=== PATIENT | male | born 1975 | race African-American/Black ===

== ENCOUNTER 2016-09-26 09:04 | Emergency (ER) | payer OTHER | END 2016-09-26 10:28 | disposition home or self-care (01) | LOC: D.ER 09:04 | DX: M54.12 Radiculopathy, cervical region (principal); F17.200 Nicotine dependence, unspecified, uncomplicated ==

== ENCOUNTER 2017-05-18 01:09 | Emergency (ER) | payer OTHER | END 2017-05-18 01:58 | disposition home or self-care (01) | LOC: D.ER 01:09 | DX: S01.312A Laceration without foreign body of left ear, initial encounter (principal); Y04.2XXA Assault by strike against or bumped into by another person, initial encounter; Y93.89 Activity, other specified; Y92.029 Unspecified place in mobile home as the place of occurrence of the external cause; F17.200 Nicotine dependence, unspecified, uncomplicated ==

== ENCOUNTER 2017-10-01 16:54 | Emergency (ER) | payer OTHER ==
[2017-10-01 18:37] LABS: BASOPHILS 0.4 % (0-2); EOSINOPHILS 1.5 % (0-7); HEMATOCRIT 41.1 % (42.0-54.0); IMMATURE GRANULOCYTES 0.3 % (0-5); LYMPHOCYTES 31.2 % (15-50); MCH 31.5 pg (26.0-34.0); MCHC 34.1 g/dL (31.0-37.0); MCV 92.6 fL (80.0-100.0); MEAN PLATELET VOLUME 10.2 fL (7.4-10.4); MONOCYTES 10.4 % (2-11); NEUTROPHILS 56.2 % (40-80); PLATELET COUNT 212 10x3/uL (130-400); RBC 4.44 10x6/uL (4.20-6.10); RDW 13.1 % (11.5-14.5); WBC 7.2 10x3/uL (4.8-10.8)
[2018-01-02 15:02] VITALS: BMI 24.4
== END 2017-10-01 21:26 | disposition home or self-care (01) ==
LOC: D.ER 16:54
PROVIDERS: Emergency Medicine
DX: R04.0 Epistaxis (principal); M25.511 Pain in right shoulder

== ENCOUNTER → 2017-11-03 09:53 | Outpatient (CLI) | payer MEDICAID ==
[~2017-11-03 09:53] MED LIST: BACTRIM DS TABL1 TAB PO; DOXYCYCLINE HY100 M2 PO; HYDROCODONE-APA1 TAB PO
[2018-01-02 15:02] VITALS: BMI 24.4
== END | disposition home or self-care (01) ==
LOC: D.MRI 11-02 10:00
DX: M25.511 Pain in right shoulder (principal)

== ENCOUNTER 2017-11-07 03:10 | Observation (INO) | payer MEDICAID ==
[~2017-11-07] VITALS: Ht 175.3 cm; Wt 75.0 kg
--- NOTE | ~2017-11-07 | OP ---
PATIENT NAME: PETTY SINCLAIR MEDICAL RECORD: [id number] :73 LOCATION:[facility] ADMISSION DATE:11/07/17 SURGEON: ROCKY BARR MD DATE OF OPERATION: 11/08/2017 PREOPERATIVE DIAGNOSIS: Fracture of the left fifth proximal phalanx. POSTOPERATIVE DIAGNOSIS: Fracture of the left fifth proximal phalanx. PROCEDURE: Closed reduction percutaneous pinning of left fifth proximal phalanx. SURGEON: Rocky Barr MD ANESTHESIA: General. INTRAOPERATIVE COMPLICATIONS: None. SUMMARY OF PATHOLOGIC FINDINGS: A very small piece was reportedly reduced. I had to do a transmetacarpal to phalanx pinning in a flexed position to hold it in the appropriate position. OPERATIVE SUMMARY IN DETAIL: After obtaining the appropriate preoperative orthopedic surgery consent as well as anesthetic consultation, evaluation and clearance, the patient was brought to the operating room and placed on the operating table in supine position. After general laryngeal mask airway was administered, tourniquet was placed about the proximal aspect of the left upper extremity, which was not used in the case. Left upper extremity was prepped and draped in routine sterile fashion. The reduction maneuver was performed under fluoroscopic guidance on first attempt and pinning retrograde was not possible. At this point, the MCP joint was held in the flexed position and under fluoroscopy showed an excellent reduction. Cross pinning was then performed transmetacarpal head into the base of the proximal phalanx, which held it in a nice position. K-wires were covered with Jurgan balls. Sterile dressings were applied. The patient was awakened and taken to the recovery room in stable condition. All final needle and sponge counts were correct. TRANSINT:[id number] Voice Confirmation ID: [id number] DOCUMENT ID: [id number] ROCKY BARR MD at 1347 CC: [id number] DICTATION DATE: 11/08/17 0928 CLUB ROOM ATTENDANT: 11/08/17 1241 [place] [address]
[2017-11-07 04:36] LABS: BASOPHILS 0.7 % (0-2); EOSINOPHILS 0.9 % (0-7); HEMATOCRIT 41.2 % (42.0-54.0); HEMOGLOBIN 14.1 g/dL (13.5-17.5); IMMATURE GRANULOCYTES 0.4 % (0-5); LYMPHOCYTES 32.9 % (15-50); MCH 31.6 pg (26.0-34.0); MCHC 34.2 g/dL (31.0-37.0); MCV 92.4 fL (80.0-100.0); MEAN PLATELET VOLUME 10.1 fL (7.4-10.4); MONOCYTES 7.2 % (2-11); NEUTROPHILS 57.9 % (40-80); PLATELET COUNT 197 10x3/uL (130-400); RBC 4.46 10x6/uL (4.20-6.10); RDW 13.2 % (11.5-14.5); WBC 5.6 10x3/uL (4.8-10.8)
[2017-11-07 04:46] LABS: INR 1.07 (0.85-1.17); PROTIME 13.5 SECONDS (11.6-15.0)
[2017-11-07 04:54] LABS: ALBUMIN 4.1 g/dL (3.4-5.0); ALKALINE PHOSPHATASE 72 U/L (46-116); ALT (SGPT) 162 U/L (10-68); BILIRUBIN - TOTAL 0.52 mg/dL (0.2-1.3); CALC OSMOLALITY 277 mosm/kg (275-300); CALCIUM 8.9 mg/dL (8.5-10.1); CARBON DIOXIDE 23.2 mmol/L (21.0-32.0); CHLORIDE - SERUM 101 mmol/L (98-107); GLUCOSE 103 mg/dL (74-106); PROTEIN - SERUM 9.3 g/dL (6.4-8.2); SODIUM 140 mmol/L (136-145); UREA NITROGEN 11 mg/dL (7-18); eGFR NON AFRICAN AMERICAN 87 mL/min (90-120)
[2017-11-07] MEDS ORDERED: HYDROCODONE-APA1 TAB PO (05:10)
[2017-11-07 05:13] VITALS: BP 104/67; Ht 175.3 cm; Wt 75.0 kg
[2017-11-07 08:19] VITALS: BP 109/74
[2017-11-07 12:19] VITALS: BP 117/67
[2017-11-07 15:44] VITALS: BP 122/78
[2017-11-07 20:21] VITALS: BP 142/96
[2017-11-07 23:58] LABS: COLOR YELLOW (YELLOW)
[2017-11-07 23:59] LABS: APPEARANCE CLEAR (CLEAR); BILIRUBIN NEGATIVE (NEGATIVE); GLUCOSE NEGATIVE (NEGATIVE); KETONE NEGATIVE (NEGATIVE); NITRITE NEGATIVE (NEGATIVE); PROTEIN NEGATIVE (NEGATIVE); UROBILINOGEN NORMAL (NORMAL)
[2017-11-08 04:05] VITALS: BP 153/93
[2017-11-08 07:50] LABS: BASOPHILS 0.3 % (0-2); EOSINOPHILS 1.1 % (0-7); HEMATOCRIT 41.1 % (42.0-54.0); HEMOGLOBIN 13.8 g/dL (13.5-17.5); IMMATURE GRANULOCYTES 0.3 % (0-5); LYMPHOCYTES 25.1 % (15-50); MCH 31.7 pg (26.0-34.0); MCHC 33.6 g/dL (31.0-37.0); MEAN PLATELET VOLUME 10.2 fL (7.4-10.4); MONOCYTES 10.7 % (2-11); NEUTROPHILS 62.5 % (40-80); PLATELET COUNT 199 10x3/uL (130-400); RBC 4.35 10x6/uL (4.20-6.10); RDW 13.3 % (11.5-14.5)
[2017-11-08 07:54] VITALS: BP 132/89
[2017-11-08 07:56] LABS: MCV 94.5 fL (80.0-100.0); WBC 7.4 10x3/uL (4.8-10.8)
[2017-11-08 08:10] LABS: INR 1.03 (0.85-1.17); PROTIME 13.1 SECONDS (11.6-15.0)
[2017-11-08 08:13] LABS: ALKALINE PHOSPHATASE 69 U/L (46-116); ALT (SGPT) 133 U/L (10-68); BILIRUBIN - TOTAL 1.19 mg/dL (0.2-1.3); CALCIUM 9.3 mg/dL (8.5-10.1); CHLORIDE - SERUM 96 mmol/L (98-107); CREATININE - SERUM 1.1 mg/dL (0.6-1.3); GLUCOSE 121 mg/dL (74-106); MAGNESIUM - SERUM 2.2 mg/dL (1.8-2.4); PHOSPHOROUS 3.9 mg/dL (2.5-4.9); POTASSIUM - SERUM 4.2 mmol/L (3.5-5.1); PROTEIN - SERUM 9.3 g/dL (6.4-8.2); SODIUM 136 mmol/L (136-145); eGFR NON AFRICAN AMERICAN 78 mL/min (90-120)
[2017-11-08 08:16] LABS: CALC OSMOLALITY 273 mosm/kg (275-300); CARBON DIOXIDE 30.4 mmol/L (21.0-32.0); UREA NITROGEN 14 mg/dL (7-18)
[2017-11-08] MEDS ORDERED: HYDROCODONE-APA1 TAB PO (09:23)
[2017-11-08 10:50] VITALS: BP 137/90
== END 2017-11-08 14:30 | disposition home or self-care (01) ==
LOC: D.ER 03:10 → OBSVTIME 04:23 → D.EDHOLD 04:23 → D.MS 04:23
PROVIDERS: Emergency Medicine; Orthopaedic Surgery
DX: S62.617A Displaced fracture of proximal phalanx of left little finger, initial encounter for closed fracture (principal); W19.XXXA Unspecified fall, initial encounter

== ENCOUNTER 2017-12-30 10:29 | Inpatient (IN) | payer MEDICAID ==
[~2017-12-30] VITALS: Ht 175.3 cm; Wt 75.0 kg
--- NOTE | ~2017-12-30 | OP ---
PATIENT NAME: PETTY SINCLAIR MEDICAL RECORD: [id number] :73 LOCATION:[id number] ADMISSION DATE:01/01/18 SURGEON: ROCKY BARR MD DATE OF OPERATION: 01/03/2018 PREOPERATIVE DIAGNOSIS: Osteomyelitis of the left fifth distal metacarpal MCP joint and the proximal aspect of the proximal phalanx. POSTOPERATIVE DIAGNOSIS: Osteomyelitis of the left fifth distal metacarpal MCP joint and the proximal aspect of the proximal phalanx. PROCEDURES: Excisional debridement to include skin; subcutaneous tissue; portions of fat, fascia, muscle, and bone; 20 cm or less in aggregate. SURGEON: Rocky Barr MD ANESTHESIA: General. INTRAOPERATIVE COMPLICATIONS: None. SUMMARY OF PATHOLOGIC FINDINGS: The patient clearly had osteomyelitis of the proximal aspect of the proximal phalanx and the distal aspect of the fifth finger metacarpal as well as purulence in the joint capsule itself. INDICATIONS: A 42-year-old gentleman had a comminuted proximal phalanx fracture of the fifth. This was pinned. He missed his original followup and came in for pin removal with no bandage on. He had been moving yards. At the time of removal, it did not look suppurative; however, he presented approximately 2 weeks later with radiographic evidence of early osteomyelitis as well as pain, swelling, and erythema. He was asked to be admitted that evening. He left to go home and take care of personal matters and returned 2 days later, thusly admitted. Antibiotics were started. He was brought to the OR today for the above procedure. OPERATIVE SUMMARY IN DETAIL: After obtaining the appropriate preoperative orthopaedic surgery consent as well as anesthetic consultation, evaluation, and clearance, the patient was brought to the operating room and placed on the operating table in the supine position. After adequate general laryngeal mask airway was administered, the patient's left upper extremity was prepped and draped in routine sterile fashion. Mid linear incision was made on the ulnar aspect of the fifth digit and taken down from the proximal aspect of the proximal phalanx across the joint to the distal aspect of the distal phalanx. An 18-gauge needle was then used to very gently create a small hole; however, the cortex was very soft and was very easily traversed. A small curettage was then used to clean out the proximal aspect of the proximal phalanx. A small incision was made in the finger capsule. Likewise, it was held in traction while it was curettaged. Cultures were taken at this point from the intracapsular aspect. Again, a small hole was made in the distal aspect of the fifth metacarpal phalanx on the ulnar side and curettage was performed here as well. At this point, the 18-gauge needle was used to irrigate both the interosseous portions as well as the joint itself. After further irrigation of the capsule, gentle reapproximation of the skin with 4-0 Prolene was done; however, it was left not closed tightly and was still gently bleeding at the time of application of sterile bandages. Sterile bandages were applied. The patient was awakened and taken to recovery room in stable condition. All final OPERATIVE REPORT [id number] PETTY SINCLAIR needle and sponge counts were correct. The patient was not given preoperative antibiotics because he is on routine vancomycin on the floor. Please note all final needle and sponge counts were correct. TRANSINT:[id number] Voice Confirmation ID: [id number] DOCUMENT ID: [id number] MOMO ROWE, ROCKY KRISHNAN at 1259 CC: [id number] DICTATION DATE: 01/03/18 1633 HEALTH IT SPECIALIST: 01/03/18 1907 DIS IN 01/05/18 [facility] [address] [place] [address]
[~2017-12-30 10:29] MED LIST changes: -BACTRIM DS TABL1 TAB PO; -DOXYCYCLINE HY100 M2 PO
[2018-01-01 23:39] VITALS: BP 112/71; BP 115/84; BMI 24.4
[2018-01-02 03:58] VITALS: BP 138/97
[2018-01-02 06:33] LABS: BASOPHILS 0.2 % (0-2); EOSINOPHILS 1.8 % (0-7); HEMATOCRIT 38.7 % (42.0-54.0); HEMOGLOBIN 13.1 g/dL (13.5-17.5); IMMATURE GRANULOCYTES 0.2 % (0-5); MCH 31.3 pg (26.0-34.0); MCHC 33.9 g/dL (31.0-37.0); MCV 92.4 fL (80.0-100.0); MEAN PLATELET VOLUME 10.3 fL (7.4-10.4); MONOCYTES 13.1 % (2-11); NEUTROPHILS 59.7 % (40-80); PLATELET COUNT 152 10x3/uL (130-400); RBC 4.19 10x6/uL (4.20-6.10); RDW 13.5 % (11.5-14.5); WBC 4.5 10x3/uL (4.8-10.8)
[2018-01-02 06:41] LABS: CALC OSMOLALITY 277 mosm/kg (275-300); CALCIUM 9.1 mg/dL (8.5-10.1); CARBON DIOXIDE 26.2 mmol/L (21.0-32.0); CHLORIDE - SERUM 103 mmol/L (98-107); CREATININE - SERUM 0.9 mg/dL (0.6-1.3); GLUCOSE 113 mg/dL (74-106); POTASSIUM - SERUM 4.3 mmol/L (3.5-5.1); SODIUM 139 mmol/L (136-145); UREA NITROGEN 10 mg/dL (7-18); eGFR NON AFRICAN AMERICAN > 90 mL/min (90-120)
[2018-01-02 08:27] VITALS: BP 138/97
[2018-01-02 11:34] VITALS: BP 143/93
[2018-01-02 15:02] VITALS: Ht 175.3 cm; Wt 75.0 kg
[2018-01-02 16:09] VITALS: BP 146/101
[2018-01-02 19:59] VITALS: BP 155/92
[2018-01-03] VITALS (7 sets, daily range): BP systolic 106–149; BP diastolic 73–99
[2018-01-03 05:37] LABS: BASOPHILS 0.3 % (0-2); EOSINOPHILS 1.3 % (0-7); HEMATOCRIT 40.9 % (42.0-54.0); IMMATURE GRANULOCYTES 0.3 % (0-5); LYMPHOCYTES 16.1 % (15-50); MCH 31.6 pg (26.0-34.0); MCHC 34.2 g/dL (31.0-37.0); MCV 92.3 fL (80.0-100.0); MEAN PLATELET VOLUME 10.4 fL (7.4-10.4); MONOCYTES 7.2 % (2-11); NEUTROPHILS 74.8 % (40-80); PLATELET COUNT 169 10x3/uL (130-400); RBC 4.43 10x6/uL (4.20-6.10); RDW 13.4 % (11.5-14.5)
[2018-01-03 05:45] LABS: WBC 6.2 10x3/uL (4.8-10.8)
[2018-01-03 05:55] LABS: CALC OSMOLALITY 268 mosm/kg (275-300); CALCIUM 9.6 mg/dL (8.5-10.1); CARBON DIOXIDE 25.4 mmol/L (21.0-32.0); CHLORIDE - SERUM 98 mmol/L (98-107); CREATININE - SERUM 0.9 mg/dL (0.6-1.3); GLUCOSE 123 mg/dL (74-106); POTASSIUM - SERUM 3.9 mmol/L (3.5-5.1); SODIUM 135 mmol/L (136-145); eGFR NON AFRICAN AMERICAN > 90 mL/min (90-120)
[2018-01-03 06:01] LABS: UREA NITROGEN 7 mg/dL (7-18)
[2018-01-04 00:32] VITALS: BP 154/84
[2018-01-04 04:42] VITALS: BP 146/95
[2018-01-04 05:54] LABS: BASOPHILS 0.2 % (0-2); EOSINOPHILS 3.1 % (0-7); HEMATOCRIT 39.3 % (42.0-54.0); HEMOGLOBIN 13.3 g/dL (13.5-17.5); IMMATURE GRANULOCYTES 0.4 % (0-5); LYMPHOCYTES 19.5 % (15-50); MCH 31.4 pg (26.0-34.0); MCHC 33.8 g/dL (31.0-37.0); MCV 92.9 fL (80.0-100.0); MEAN PLATELET VOLUME 10.4 fL (7.4-10.4); NEUTROPHILS 69.8 % (40-80); PLATELET COUNT 168 10x3/uL (130-400); RBC 4.23 10x6/uL (4.20-6.10); RDW 13.2 % (11.5-14.5)
[2018-01-04 06:16] LABS: CALC OSMOLALITY 268 mosm/kg (275-300); CALCIUM 9.1 mg/dL (8.5-10.1); CARBON DIOXIDE 25.2 mmol/L (21.0-32.0); CHLORIDE - SERUM 100 mmol/L (98-107); CREATININE - SERUM 0.9 mg/dL (0.6-1.3); GLUCOSE 106 mg/dL (74-106); POTASSIUM - SERUM 3.8 mmol/L (3.5-5.1); SODIUM 135 mmol/L (136-145); eGFR NON AFRICAN AMERICAN > 90 mL/min (90-120)
[2018-01-04 06:20] LABS: WBC 4.5 10x3/uL (4.8-10.8)
[2018-01-04 06:29] LABS: UREA NITROGEN 9 mg/dL (7-18)
[2018-01-04 08:21] VITALS: BP 138/87
[2018-01-04 13:11] VITALS: BP 132/85
[2018-01-04 21:01] VITALS: BP 143/85
[2018-01-05 04:00] VITALS: BP 143/96
[2018-01-05 08:08] VITALS: BP 160/84
[2018-01-05] MEDS ORDERED: HYDROCODONE-APA1 TAB PO (10:30)
[2018-01-05] MEDS ORDERED: BACTRIM DS TABL1 TAB PO (10:30)
[2018-01-05] MEDS ORDERED: DOXYCYCLINE HY100 M2 PO (10:30)
== END 2018-01-05 14:13 | disposition home or self-care (01) | DRG 514 ==
LOC: D.MS 10:29
PROVIDERS: Orthopaedic Surgery
PROC: 0PBQ0ZZ Excision of Left Metacarpal, Open Approach (ICD-10-PCS; 2018-01-03)
PROC: 0PBV0ZZ Excision of Left Finger Phalanx, Open Approach (ICD-10-PCS; principal; 2018-01-03 15:15)
DX: M86.142 Other acute osteomyelitis, left hand (principal); S62.617G Displaced fracture of proximal phalanx of left little finger, subsequent encounter for fracture with delayed healing; X58.XXXD Exposure to other specified factors, subsequent encounter; F17.200 Nicotine dependence, unspecified, uncomplicated

== ENCOUNTER → 2017-12-30 12:14 | Outpatient (CLI) | payer MEDICAID ==
[2017-11-07 05:13] VITALS: BMI 24.4
[~2017-12-30 12:14] MED LIST changes: +BACTRIM DS TABL1 TAB PO; +DOXYCYCLINE HY100 M2 PO
[2017-12-30 12:58] LABS: BASOPHILS 0.4 % (0-2); EOSINOPHILS 1.6 % (0-7); HEMOGLOBIN 12.8 g/dL (13.5-17.5); IMMATURE GRANULOCYTES 0.5 % (0-5); LYMPHOCYTES 29.1 % (15-50); MCH 31.5 pg (26.0-34.0); MCHC 33.7 g/dL (31.0-37.0); MCV 93.6 fL (80.0-100.0); MEAN PLATELET VOLUME 10.9 fL (7.4-10.4); MONOCYTES 10.8 % (2-11); NEUTROPHILS 57.6 % (40-80); PLATELET COUNT 165 10x3/uL (130-400); RBC 4.06 10x6/uL (4.20-6.10); RDW 13.6 % (11.5-14.5); WBC 5.6 10x3/uL (4.8-10.8)
[2017-12-30 13:12] LABS: C-REACTIVE PROTEIN 0.2 mg/dL (0.0-0.9); CALC OSMOLALITY 280 mosm/kg (275-300); CALCIUM 8.6 mg/dL (8.5-10.1); CARBON DIOXIDE 24.2 mmol/L (21.0-32.0); CHLORIDE - SERUM 104 mmol/L (98-107); CREATININE - SERUM 0.9 mg/dL (0.6-1.3); GLUCOSE 105 mg/dL (74-106); POTASSIUM - SERUM 3.9 mmol/L (3.5-5.1); SODIUM 141 mmol/L (136-145); UREA NITROGEN 12 mg/dL (7-18); eGFR NON AFRICAN AMERICAN > 90 mL/min (90-120)
[2017-12-30 14:01] LABS: ERYTHROCYTE SEDIMENTATION RATE 34 mm/hr (0-15)
== END | disposition home or self-care (01) ==
LOC: D.LABREF 12:14
PROVIDERS: Orthopaedic Surgery
DX: M25.511 Pain in right shoulder (principal)

== ENCOUNTER 2018-01-12 00:19 | Emergency (ER) | payer MEDICAID ==
[~2018-01-12] VITALS: Ht 175.3 cm; Wt 70.9 kg
[2018-01-12 00:22] VITALS: Ht 175.3 cm; Wt 70.9 kg
[2018-01-12 02:38] VITALS: BP 144/97
== END 2018-01-12 02:37 | disposition home or self-care (01) ==
LOC: D.ER 00:19
DX: S61.411A Laceration without foreign body of right hand, initial encounter (principal); W26.9XXA Contact with unspecified sharp object(s), initial encounter; Y93.89 Activity, other specified; Y92.019 Unspecified place in single-family (private) house as the place of occurrence of the external cause; S69.91XA Unspecified injury of right wrist, hand and finger(s), initial encounter

== ENCOUNTER 2018-04-14 05:40 | Day surgery (SDC) | payer MEDICAID ==
[~2018-04-14] VITALS: Ht 175.3 cm; Wt 70.3 kg
--- NOTE | ~2018-04-14 | OP ---
PATIENT NAME: PETTY SINCLAIR MEDICAL RECORD: [id number] :73 LOCATION:[facility] ADMISSION DATE: SURGEON: ROCKY BARR MD DATE OF OPERATION: 04/14/2018 PREOPERATIVE DIAGNOSIS: Contracture of the left fifth finger. POSTOPERATIVE DIAGNOSIS: Contracture of the left fifth finger. PROCEDURE: Contracture correction with pinning of the DIP, PIP and MTP joint. SURGEON: Rocky Barr MD ANESTHESIA: General. INTRAOPERATIVE COMPLICATIONS: None. SUMMARY OF PATHOLOGIC FINDINGS: The patient had a very tight contracture of the finger that it required extensive manipulation, Z-lengthening tenotomy to get the finger corrected. INDICATIONS: Mr. Sinclair is a 42-year-old gentleman who recently had a badly displaced proximal phalangeal fracture of the fifth finger. 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 When he returned to the clinic for pin removal, he had suppurative drainage about the pins that had no bandages on them. The finger required I&D and eventually healed and fairly good overall alignment; however, he now has a contracture that we have agreed to try and straighten out to some extent. OPERATIVE SUMMARY IN DETAIL: After obtaining the appropriate preoperative orthopedic surgery consent as well as anesthetic consultation, evaluation and clearance, the patient was brought to the operating room and placed on the operating table in supine position. Under adequate general laryngeal mask airway was administered, tourniquet was placed on the proximal aspect of the left upper extremity. Note, it was not used during this case. Left upper extremity was prepped and draped in routine sterile fashion. Manipulation was carried out first and adequate correction of the contracture was not achieved. For this reason, a very gentle Z-lengthening of the flexor tendons was done just proximal to the PIP joint. Slowly and gently the contracture was released so that the finger could be pinned straight. The pin was driven under fluoroscopy through the DIP joint, PIP joint and MCP joint. Having completed this, the index finger was slightly manipulated to the small stab incision was closed with 4-0 Prolene. Sterile dressings were applied and a regional gutter splint was applied to the fourth and fifth fingers of the left hand. Following this, the patient was awakened, extubated, and taken to recovery room in stable condition. All final needle and sponge counts were correct. TRANSINT:[id number] Voice Confirmation ID: [id number] DOCUMENT ID: [id number] OPERATIVE REPORT [id number] PETTY SINCLAIR MD, ROCKY KRISHNAN at 1023 CC: [id number] DICTATION DATE: 04/14/1839 SUPPLIER MANAGER: 04/14/18 0910 [place] [id number] [place] [id number]
[2018-04-14 07:11] VITALS: BP 153/83; Ht 175.3 cm; Wt 70.3 kg
[2018-04-14] MEDS ORDERED: NORCO 10-325 TA1 TAB PO (08:35)
== END 2018-04-14 11:08 | disposition home or self-care (01) ==
LOC: D.OPS 05:40 → D.PAN 08:15 → D.OPS 11:08
DX: M24.542 Contracture, left hand (principal); Z72.0 Tobacco use

== ENCOUNTER → 2019-03-08 17:16 | Outpatient (CLI) | payer MEDICAID ==
[2018-04-14 07:11] VITALS: BMI 22.9
[~2019-03-08 17:16] MED LIST changes: +NORCO 10-325 TA1 TAB PO
[2019-03-08 21:33] LABS: PROTEIN - BODY FLUID 13.2 G/DL; PROTEIN - BODY FLUID 7.5 G/DL
[2019-03-08 21:55] LABS: MACROPHAGES BF 37 %; MESOTHELIALS BF 3 %; NEUT - BF 45 %
[2019-03-08 22:21] LABS: EOS BF 3 %; MACROPHAGES BF 5 %; MESOTHELIALS BF 4 %; NEUT - BF 29 %
== END | disposition home or self-care (01) ==
LOC: D.LABREF 17:16
PROVIDERS: ATTEND Orthopaedic Surgery
DX: M25.561 Pain in right knee (principal); M25.562 Pain in left knee

== ENCOUNTER 2019-06-25 03:55 | Emergency (ER) | payer MEDICAID ==
[~2019-06-25] VITALS: Ht 175.3 cm; Wt 75.0 kg
[2019-06-25 04:07] VITALS: Ht 175.3 cm; Wt 75.0 kg
[2019-06-25 05:10] VITALS: BP 100/76
== END 2019-06-25 05:11 | disposition home or self-care (01) ==
LOC: D.ER 03:55
DX: S60.00XA Contusion of unspecified finger without damage to nail, initial encounter (principal); W22.8XXA Striking against or struck by other objects, initial encounter; Y93.9 Activity, unspecified; Y92.9 Unspecified place or not applicable

== ENCOUNTER → 2020-02-13 10:36 | Outpatient (CLI) | payer OTHER ==
[2019-06-25 04:07] VITALS: BMI 24.4
== END | disposition home or self-care (01) ==
LOC: D.MRI 10:36
PROVIDERS: ATTEND Clinical Nurse Specialist Family Health
DX: M25.512 Pain in left shoulder (principal)

== ENCOUNTER → 2020-03-13 07:48 | Outpatient (CLI) | payer OTHER ==
[2019-06-25 04:07] VITALS: BMI 24.4
== END | disposition home or self-care (01) ==
LOC: D.MRI 02-20 10:00
PROVIDERS: ATTEND Clinical Nurse Specialist Family Health
DX: M54.12 Radiculopathy, cervical region (principal)